=== PATIENT | male | born 1945 | race Caucasian/White ===

== ENCOUNTER 2016-12-31 17:44 | Outpatient (CLI) | payer MEDICARE, OTHER ==
[2016-12-31 13:38] LABS: HEMOGLOBIN A1C 0.94 g/dL
[2016-12-31 14:05] LABS: ALBUMIN/GLOBULIN RATIO 1.4 (1.0-2.2); BILIRUBIN,TOTAL 1.9 mg/dL (0.2-1.0); BUN - BLOOD UREA NITROGEN 18 mg/dL (6-20); CALCIUM 9.3 mg/dL (8.5-10.3); CARBON DIOXIDE - CO2 25 mmol/L (21-32); CHLORIDE 105 mmol/L (101-111); CHOL/HDL RATIO 5.3 (<5.0); CHOLESTEROL 163 mg/dL; CREATININE 1.1 mg/dL (0.6-1.2); GFR - MDRD 66 (>89); GLUCOSE 136 mg/dL (70-100); HDL CHOLESTEROL 31 mg/dL; LDL/HDL RATIO 2.9 (<3.6); POTASSIUM 4.1 mmol/L (3.5-5.0); SODIUM 138 mmol/L (135-145); TOTAL PROTEIN 6.8 g/dL (6.7-8.2); TRIGLYCERIDES 209 mg/dL; VLDL CHOLESTEROL 42 mg/dL
== END 2016-12-31 17:45 | disposition home or self-care (01) ==
LOC: LAB.WCP 17:44
PROVIDERS: ATTEND Family Medicine
DX: E11.40 Type 2 diabetes mellitus with diabetic neuropathy, unspecified (principal)
CPT/HCPCS: 36415; 80053; 80061; 82043; 83036

== ENCOUNTER 2017-07-07 07:56 | Outpatient (CLI) | payer MEDICARE, OTHER ==
[2017-07-07 12:55] LABS: BASOPHILS % (AUTO) 0.6 %; EOSINOPHILS # (AUTO) 0.2 10^3/uL (0.0-0.7); EOSINOPHILS % (AUTO) 3.6 %; LYMPHOCYTES # (AUTO) 2.8 10^3/uL (1.5-3.5); LYMPHOCYTES % (AUTO) 44.1 %; MEAN CORPUSCULAR HEMOGLOBIN 29.3 pg (27.0-31.0); MEAN CORPUSCULAR HGB CONC 32.9 g/dL (32.0-36.0); MEAN PLATELET VOLUME 8.5 fL (7.4-11.4); MONOCYTES # (AUTO) 0.5 10^3/uL (0.0-1.0); NEUTROPHILS # (AUTO) 2.8 10^3/uL (1.5-6.6); NEUTROPHILS % (AUTO) 43.7 %; PLT - PLATELET COUNT 194 10^3/uL (130-450); RED BLOOD COUNT 5.45 10^6/uL (4.70-6.10); RED CELL DISTRIBUTION WIDTH 14.7 % (12.0-15.0); WHITE BLOOD COUNT 6.4 x10^3/uL (4.8-10.8)
[2017-07-07 13:22] LABS: HEMOGLOBIN A1C 1.07 g/dL; HEMOGLOBIN A1C % 7.6 % (4.6-6.2)
[2017-07-07 13:32] LABS: ALBUMIN 4.1 g/dL (3.2-5.5); ALBUMIN/GLOBULIN RATIO 1.4 (1.0-2.2); ALKALINE PHOSPHATASE 33 IU/L (42-121); ALT ALANINE AMINOTRANSFERASE 47 IU/L (10-60); AST ASPARTATE AMINOTRANSFERASE 29 IU/L (10-42); BUN - BLOOD UREA NITROGEN 18 mg/dL (6-20); CALCIUM 9.7 mg/dL (8.5-10.3); CARBON DIOXIDE - CO2 26 mmol/L (21-32); CHLORIDE 106 mmol/L (101-111); CHOL/HDL RATIO 4.6 (<5.0); CHOLESTEROL 174 mg/dL; CREATININE 1.2 mg/dL (0.6-1.2); GFR - MDRD 60 (>89); GLUCOSE 156 mg/dL (70-100); HDL CHOLESTEROL 38 mg/dL; LDL CHOLESTEROL,CALCULATED 93 mg/dL; LDL/HDL RATIO 2.4 (<3.6); SODIUM 138 mmol/L (135-145); TOTAL PROTEIN 7.1 g/dL (6.7-8.2); VLDL CHOLESTEROL 43 mg/dL
== END 2017-07-07 07:57 | disposition home or self-care (01) ==
LOC: LAB.WCP 07:56
PROVIDERS: ATTEND Family Medicine
DX: E11.9 Type 2 diabetes mellitus without complications (principal); R53.83 Other fatigue
CPT/HCPCS: 36415; 80053; 80061; 83036; 83721; 85025

== ENCOUNTER 2017-10-07 07:12 | Outpatient (CLI) | payer MEDICARE, OTHER ==
[2017-10-07 13:02] LABS: ALBUMIN 4.1 g/dL (3.2-5.5); ALBUMIN/GLOBULIN RATIO 1.5 (1.0-2.2); BILIRUBIN,TOTAL 1.4 mg/dL (0.2-1.0); CALCIUM 9.7 mg/dL (8.5-10.3); CREATININE 1.2 mg/dL (0.6-1.2); TOTAL PROTEIN 6.9 g/dL (6.7-8.2)
[2017-10-07 13:11] LABS: HB2 TOTAL 16.8 g/dL; HEMOGLOBIN A1C 1.02 g/dL; HEMOGLOBIN A1C % 7.7 % (4.6-6.2)
== END 2017-10-07 07:13 ==
LOC: LAB.WCP 07:12
PROVIDERS: ATTEND Family Medicine
DX: E11.9 Type 2 diabetes mellitus without complications (principal)
CPT/HCPCS: 36415; 80053; 83036

== ENCOUNTER 2018-01-07 07:30 | Outpatient (CLI) | payer MEDICARE, OTHER ==
[2018-01-07 12:56] LABS: HB2 TOTAL 17.1 g/dL; HEMOGLOBIN A1C 1.04 g/dL; HEMOGLOBIN A1C % 7.7 % (4.6-6.2)
[2018-01-07 13:04] LABS: ALBUMIN 4.3 g/dL (3.2-5.5); ALBUMIN/GLOBULIN RATIO 1.6 (1.0-2.2); BILIRUBIN,TOTAL 0.9 mg/dL (0.2-1.0); CALCIUM 9.7 mg/dL (8.5-10.3); CREATININE 1.2 mg/dL (0.6-1.2)
== END 2018-01-07 07:31 | disposition home or self-care (01) ==
LOC: LAB.WCP 07:30
PROVIDERS: ATTEND Family Medicine
DX: E11.40 Type 2 diabetes mellitus with diabetic neuropathy, unspecified (principal); M65.331 Trigger finger, right middle finger; E11.9 Type 2 diabetes mellitus without complications
CPT/HCPCS: 36415; 80053; 82043; 83036

== ENCOUNTER 2018-04-10 07:30 | Outpatient (CLI) | payer MEDICARE, OTHER ==
[2018-04-10 13:09] LABS: CALCIUM 9.4 mg/dL (8.5-10.3); CREATININE 1.1 mg/dL (0.6-1.2)
[2018-04-10 14:15] LABS: HB2 TOTAL 16.1 g/dL; HEMOGLOBIN A1C 1.01 g/dL; HEMOGLOBIN A1C % 7.9 % (4.6-6.2)
== END 2018-04-10 07:31 | disposition home or self-care (01) ==
LOC: LAB.WCP 07:30
PROVIDERS: ATTEND Family Medicine
DX: E11.40 Type 2 diabetes mellitus with diabetic neuropathy, unspecified (principal); E11.9 Type 2 diabetes mellitus without complications
CPT/HCPCS: 36415; 80048; 83036

== ENCOUNTER 2018-07-13 08:00 | Outpatient (CLI) | payer MEDICARE, OTHER ==
[2018-07-13 12:58] LABS: ALBUMIN 3.9 g/dL (3.2-5.5); ALBUMIN/GLOBULIN RATIO 1.3 (1.0-2.2); CALCIUM 9.4 mg/dL (8.5-10.3)
[2018-07-13 13:22] LABS: HB2 TOTAL 16.5 g/dL; HEMOGLOBIN A1C 1.14 g/dL; HEMOGLOBIN A1C % 8.5 % (4.6-6.2)
== END 2018-07-13 23:59 | disposition home or self-care (01) ==
LOC: LAB.WCP 08:00
PROVIDERS: ATTEND Family Medicine
DX: R10.30 Lower abdominal pain, unspecified (principal); E11.40 Type 2 diabetes mellitus with diabetic neuropathy, unspecified
CPT/HCPCS: 36415; 80053; 82043; 83036

== ENCOUNTER 2018-07-24 09:38 | Outpatient (CLI) | payer MEDICARE, OTHER ==
[2018-07-24] MEDS ORDERED: IOVERSOL 320 50 ML VIAL ONE (10:03)
[2018-07-24] MEDS ORDERED: IOVERSOL 320 100 ML VIAL IVP ONE ×2 (10:03→11:08)
[2018-07-24] MEDS ORDERED: IOVERSOL 320 50 ML VIAL PO ONE (11:08)
--- NOTE | 2018-07-24 11:39 | CT Report ---
Reason: ABDOMINAL PAIN,RIGHT LOWER QUADRANT Procedure Date: 07/24/2018 Accession Number: [id number] / [id number] Procedure: CT - Abdomen/Pelvis W CPT Code: FULL RESULT: EXAM: CT ABDOMEN AND PELVIS EXAM DATE: 07/24/2018 11:07 AM. CLINICAL HISTORY: Abdominal pain, right lower quadrant. COMPARISONS: None. TECHNIQUE: Routine helical CT imaging was performed through the abdomen and pelvis. IV contrast: Opti 320 90 mL. Enteric contrast: Yes. Reconstructions: Coronal and sagittal. In accordance with CT protocol optimization, one or more of the following dose reduction techniques were utilized for this exam: automated exposure control, adjustment of mA and/or KV based on patient size, or use of iterative reconstructive technique. FINDINGS: Lung Bases: Unremarkable. Liver: Normal. No masses. Gallbladder/Bile Ducts: Cholelithiasis. Spleen: Normal. Pancreas: Normal. Adrenal Glands: Normal. Kidneys: Right renal cysts. No hydronephrosis on either side. No calculi. Peritoneal Cavity/Bowel: Nonspecific 0.8 cm peritoneal calcification in the pericecal region. No free fluid, free air or adenopathy. No masses or acute inflammatory process. The appendix is well visualized and normal. Pelvic Organs: Normal. The bladder and visualized pelvic organs are within normal limits. Vasculature: No aneurysms or other significant abnormality. Bones: No significant abnormality. Other: None. IMPRESSION: Cholelithiasis, no acute cholecystitis. RADIA
== END 2018-07-24 09:39 | disposition home or self-care (01) ==
LOC: DI 09:38
PROVIDERS: ATTEND Family Medicine
DX: K80.20 Calculus of gallbladder without cholecystitis without obstruction (principal); R10.31 Right lower quadrant pain
CPT/HCPCS: 74177; Q9967

== ENCOUNTER 2018-10-12 07:11 | Outpatient (CLI) | payer MEDICARE, OTHER ==
[2018-10-12 12:35] LABS: ALBUMIN 4.3 g/dL (3.2-5.5); ALBUMIN/GLOBULIN RATIO 1.5 (1.0-2.2); BILIRUBIN,TOTAL 2.5 mg/dL (0.2-1.0); CALCIUM 9.4 mg/dL (8.5-10.3); CREATININE 1.1 mg/dL (0.6-1.2); TOTAL PROTEIN 7.1 g/dL (6.7-8.2)
[2018-10-12 13:44] LABS: HEMOGLOBIN A1C 1.13 g/dL; HEMOGLOBIN A1C % 8.6 % (4.6-6.2)
== END 2018-10-12 07:12 | disposition home or self-care (01) ==
LOC: LAB.WCP 07:11
PROVIDERS: ATTEND Family Medicine
DX: E11.40 Type 2 diabetes mellitus with diabetic neuropathy, unspecified (principal)
CPT/HCPCS: 36415; 80053; 83036

== ENCOUNTER 2019-01-04 08:00 | Outpatient (CLI) | payer MEDICARE, OTHER ==
[2019-01-04 12:34] LABS: CREATININE 1.4 mg/dL (0.6-1.2)
[2019-01-04 16:26] LABS: HB2 TOTAL 17.6 g/dL; HEMOGLOBIN A1C 1.01 g/dL; HEMOGLOBIN A1C % 7.4 % (4.6-6.2)
== END 2019-01-04 23:59 | disposition home or self-care (01) ==
LOC: LAB.WCP 08:00
PROVIDERS: ATTEND Family Medicine
DX: E11.40 Type 2 diabetes mellitus with diabetic neuropathy, unspecified (principal)
CPT/HCPCS: 36415; 80048; 83036

== ENCOUNTER 2019-05-03 08:00 | Outpatient (CLI) | payer MEDICARE, OTHER ==
[2019-05-03 12:45] LABS: HB2 TOTAL 15.8 g/dL; HEMOGLOBIN A1C 1.01 g/dL
[2019-05-03 13:11] LABS: ALBUMIN 4.2 g/dL (3.2-5.5); ALBUMIN/GLOBULIN RATIO 1.4 (1.0-2.2); ALKALINE PHOSPHATASE 34 IU/L (42-121); ALT ALANINE AMINOTRANSFERASE 23 IU/L (10-60); AST ASPARTATE AMINOTRANSFERASE 20 IU/L (10-42); BILIRUBIN,TOTAL 2.1 mg/dL (0.2-1.0); BUN - BLOOD UREA NITROGEN 17 mg/dL (6-20); CALCIUM 9.4 mg/dL (8.5-10.3); CARBON DIOXIDE - CO2 27 mmol/L (21-32); CHLORIDE 106 mmol/L (101-111); CHOL/HDL RATIO 3.2 (<5.0); CHOLESTEROL 119 mg/dL; CREATININE 1.2 mg/dL (0.6-1.2); GFR - MDRD 59 (>89); GLUCOSE 153 mg/dL (70-100); HDL CHOLESTEROL 37 mg/dL; LDL CHOLESTEROL,CALCULATED 55 mg/dL; LDL/HDL RATIO 1.5 (<3.6); SODIUM 142 mmol/L (135-145); TOTAL PROTEIN 7.1 g/dL (6.7-8.2); VLDL CHOLESTEROL 27 mg/dL
[2019-05-03 18:49] LABS: MICROALBUM/CREATININE RATIO,UR 45.5 ug/mg (<30.0); MICROALBUMIN,URINE 9.7 mg/dL (0-300.0)
== END 2019-05-03 23:59 | disposition home or self-care (01) ==
LOC: LAB.WCP 08:00
PROVIDERS: ATTEND Family Medicine
DX: E11.40 Type 2 diabetes mellitus with diabetic neuropathy, unspecified (principal); R19.4 Change in bowel habit
CPT/HCPCS: 36415; 80053; 80061; 82043; 82570; 83036; 83721; 84443

== ENCOUNTER 2019-11-05 08:00 | Outpatient (CLI) | payer MEDICARE, OTHER ==
[2019-11-05 12:23] LABS: CALCIUM 9.3 mg/dL (8.5-10.3); CREATININE 1.1 mg/dL (0.6-1.2)
[2019-11-05 12:37] LABS: HB2 TOTAL 15.8 g/dL; HEMOGLOBIN A1C 0.74 g/dL; HEMOGLOBIN A1C % 6.4 % (4.6-6.2)
[2019-11-05 19:16] LABS: CREATININE,URINE 108.3 mg/dL; MICROALBUM/CREATININE RATIO,UR 34.2 ug/mg (<30.0); MICROALBUMIN,URINE 3.7 mg/dL (0-300.0)
== END 2019-11-05 23:59 | disposition home or self-care (01) ==
LOC: LAB.WCP 08:00
PROVIDERS: ATTEND Family Medicine
DX: I10 Essential (primary) hypertension (principal); E11.9 Type 2 diabetes mellitus without complications; E78.5 Hyperlipidemia, unspecified; N52.9 Male erectile dysfunction, unspecified
CPT/HCPCS: 36415; 80048; 81599; 82043; 82570; 83036; 84402; 84403

== ENCOUNTER 2020-03-07 10:54 | Outpatient (CLI) | payer MEDICARE, OTHER ==
[2020-03-07 19:21] LABS: CREATININE,URINE 205.5 mg/dL; MICROALBUM/CREATININE RATIO,UR 35.5 ug/mg (<30.0); MICROALBUMIN,URINE 7.3 mg/dL (0-300.0)
[2020-03-07 19:35] LABS: CALCIUM 9.6 mg/dL (8.5-10.3); CREATININE 1.1 mg/dL (0.6-1.2)
[2020-03-07 20:33] LABS: HEMOGLOBIN A1c% 6.7 % (4.27-6.07)
== END 2020-03-07 23:59 | disposition home or self-care (01) ==
LOC: LAB.WCP 10:54
PROVIDERS: ATTEND Family Medicine
DX: I10 Essential (primary) hypertension (principal); E78.5 Hyperlipidemia, unspecified; E11.9 Type 2 diabetes mellitus without complications
CPT/HCPCS: 36415; 80048; 82043; 82570; 83036

== ENCOUNTER 2020-06-02 07:10 | Outpatient (CLI) | payer MEDICARE, OTHER ==
[2020-06-02 12:52] LABS: ESTIMATED AVERAGE GLUCOSE 151 mg/dL (70-100); HEMOGLOBIN A1c% 6.9 % (4.27-6.07)
[2020-06-02 13:03] LABS: ALBUMIN 4.3 g/dL (3.2-5.5); ALBUMIN/GLOBULIN RATIO 1.5 (1.0-2.2); BILIRUBIN,TOTAL 1.5 mg/dL (0.2-1.0); CALCIUM 9.7 mg/dL (8.5-10.3); CREATININE 1.2 mg/dL (0.6-1.2); POTASSIUM 4.1 mmol/L (3.5-5.0); TOTAL PROTEIN 7.1 g/dL (6.7-8.2)
--- OUTSIDE RECORDS SUMMARY | 2020-06-07 01:54 | EXTERNAL MEDICAL SUMMARY RPT | Continuity of Care Document ---
:1945 Demographics Phone Unavailable Preferred Language Singaporean Marital Status Unknown Taoist Affiliation Unknown Race Unknown Ethnic Group Unknown Author Organization [place] Address [address] [place] [address] Phone Care Team Providers Name Role Phone Tabatha Unavailable Unavailable Unavailable Unavailable Solange Unavailable Unavailable Problems date description facility 2020-03-07 10:54 TYPE 2 DIABETES MELLITUS Located within [facility] WITHOUT COMPLICATIONS 2020-03-07 10:54 HYPERLIPIDEMIA, UNSPECIFIED [facility] 2020-03-07 10:54 ESSENTIAL (PRIMARY) [facility] HYPERTENSION 2020-03-10 00:00:[address] [facility] [place] [facility] 2020-03-10 00:00:00 Health-related behavior [facility] [place] [facility] 2020-03-10 00:00:00 Tobacco use and exposure [facility] [place] [facility] 2020-03-10 00:00:[address] [facility] [place] [facility] 2020-03-10 00:00:[address] [facility] [place] [facility] 2020-03-10 00:00:[address] [facility] [place] [facility] 2020-03-10 00:00:00 Tobacco smoking status NHIS [facility] [place] [facility] 2020-05-26 00:00:00 COMPREHENSIVE METABOLIC PANEL [facility] [place] [facility] 2020-05-26 00:00:[address] [facility] [place] [facility] 2020-06-02 00:00 TYPE 2 DIABETES MELLITUS Located within [facility] WITHOUT COMPLICATIONS 2020-06-02 07:10 TYPE 2 DIABETES MELLITUS Located within [facility] WITHOUT COMPLICATIONS Allergies date description facility No Known Drug Allergies Located within [facility] NO KNOWN ALLERGIES [facility] Medications date description facility 2020-03-10 00:00:[address] [facility] [place] [facility] 2020-03-10 00:00:[address] [facility] [place] [facility] Procedures date description facility 2020-03-10 00:00:00 First Vx - Ix admin for [facility] Medicare patients [place] [facility] date description facility 2020-03-10 00:00:00 Pneumovax 23 Injection [facility] Injectable 25 MCG/0.5ML [place] [facility] date description facility 2020-03-10 00:00:00 [facility] [place] [facility] Results Social History date description facility 2020-03-10 00:00:[address] [facility] [place] [facility] Social History date description facility 2020-03-10 00:00:[address] [facility] [place] [facility] date description facility [id number]
== END 2020-06-02 23:59 | disposition home or self-care (01) ==
LOC: LAB.WCP 07:10
PROVIDERS: ATTEND Family Medicine
DX: E11.9 Type 2 diabetes mellitus without complications (principal)
CPT/HCPCS: 36415; 80053; 83036

== ENCOUNTER 2020-06-08 13:47 | Outpatient (CLI) | payer MEDICARE, OTHER ==
--- NOTE | 2020-06-08 16:09 | XRAY Report ---
PROCEDURE: Lumbar Spine 2 View INDICATIONS: LOW BACK PAIN, CHRONIC TECHNIQUE: 3 views of the lumbar spine were acquired. COMPARISON: Lumbar spine x-ray 07/13/2016 FINDINGS: Bones: 5 aww-pyj-aspumkz vertebrae are present. There is overall straightening of normal lumbar cur vature. There is trace retrolisthesis of L3 on L4, L4-L5 and L5 on S1. Severe foraminal narrowing is noted at L2-3, L4-5 and L5-S1. Severe disc space narrowing is present at L5-S1, moderate to severe L2 -3 mild to moderate throughout the remainder of the lumbar spine. Multilevel partially bridging anter ior osteophytes are present within the visualized thoracolumbar spine. Overall degenerative changes d emonstrating interval progression at multiple levels. No visualized acute fracture.. No suspicious bony lesions. Soft tissues: Overlying bowel gas pattern is normal. No suspicious soft tissue calcifications. IMPRESSION: 1. Multilevel degenerative changes most severe at L5-S1 overall showing interval progression compared to 2017. Reviewed by: Caity Pichardo MD on 06/08/2020 4:08 PM PST Approved by: Caity Pichardo MD on 06/08/2020 4:08 PM PST Station ID: [id number]
--- NOTE | 2020-06-08 16:09 | XRAY Report ---
PROCEDURE: Hip w/Pelvis 1V RT INDICATIONS: HIP PAIN, RIGHT TECHNIQUE: AP pelvis with lateral view(s) of the right hip(s). COMPARISON: CT abdomen pelvis 07/24/2018 FINDINGS: Bones: No fractures or dislocations. Pelvic ring appears intact. No suspicious bony lesions. Mode rate bilateral degenerative hip joint space narrowing. Particular osteophytes are present. No visuali zed erosions. Degenerative changes are present within the lower lumbar spine. Soft tissues: The visualized bowel gas pattern is normal. No suspicious soft tissue calcifications. 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 Reviewed by: Caity Pichardo MD on 06/08/2020 4:08 PM PST Approved by: Caity Pichardo MD on 06/08/2020 4:08 PM PST Station ID: [id number]
== END 2020-06-08 13:48 | disposition home or self-care (01) ==
LOC: DI.N 13:47
PROVIDERS: ATTEND Physician Assistant Medical
DX: M43.16 Spondylolisthesis, lumbar region (principal); M43.17 Spondylolisthesis, lumbosacral region; M47.816 Spondylosis without myelopathy or radiculopathy, lumbar region; M47.817 Spondylosis without myelopathy or radiculopathy, lumbosacral region; M51.36 Other intervertebral disc degeneration, lumbar region; M51.37 Other intervertebral disc degeneration, lumbosacral region; M16.0 Bilateral primary osteoarthritis of hip

== ENCOUNTER 2020-10-18 09:17 | Emergency (ER) | payer MEDICARE, OTHER ==
[2020-10-18] MEDS ORDERED: ONDANSETRON 4 MG/2 ML VIAL IVP STA (09:35)
[2020-10-18] MEDS ORDERED: HYDROmorphone 1 MG/ML CARPUJECT IVP STA (09:35)
--- NOTE | 2020-10-18 09:38 | ED Physician Documentation ---
PD HPI ABD PAIN - Stated complaint Stated Complaint: RIGHT LEG,HIP,BACK,GROIN PX - Chief complaint Chief Complaint: Abd Pain - History obtained from History obtained from: Patient - Additional information Additional information: 75-year-old male with diabetes has had severe right flank, right lower quadrant, right testicular pain for the last 5 days. It is worse with any movement. He has been nauseous today. There was no trauma. Never had this before. No associated hematuria or urinary complaints. Review of Systems Ten Systems: 10 systems reviewed and negative Constitutional: denies: Fever, Chills Cardiac: reports: Reviewed and negative Respiratory: reports: Reviewed and negative PD PAST MEDICAL HISTORY - Past Medical History Endocrine/Autoimmune: Type 2 diabetes - Present Medications Home Medications: Ambulatory Orders Medication Instructions Recorded Confirmed Aspirin 81 mg PO DAILY 12/20/15 06/06/16 Benazepril/Hydrochlorothiazide 1 each PO DAILY 12/20/15 06/06/16 [Benazepril-Hctz 20-25 mg Tab] Metformin HCl 1,000 mg PO BID 12/20/15 06/06/16 Multivitamin [Multivitamins] 1 each PO DAILY 12/20/15 06/06/16 Cholecalciferol (Vitamin D3) 2,000 unit PO DAILY 06/06/16 06/06/16 [Vitamin D] Gabapentin [Neurontin] 300 mg PO TID #30 cap 10/18/20 HYDROcod/ACETAM 5/325 [[place] 5/325] 1 - 2 tab PO Q6H PRN #15 tablet 10/18/20 - Allergies Allergies/Adverse Reactions: Allergies Allergy/AdvReac Type Severity Reaction Status Date / Time No Known Drug Allergies Allergy Verified 10/18/20 09:27 - Social History Smoking Status: Never smoker PD ED PE NORMAL - Vitals Vital signs reviewed: Yes - General General: Alert and oriented X 3, Other (uncomfortable) - HEENT HEENT: PERRL, EOMI - Neck Neck: Supple, no meningeal sign, No bony TTP - Cardiac Cardiac: RRR, No murmur - Respiratory Respiratory: No respiratory distress, Clear bilaterally - Abdomen Abdomen: Normal bowel sounds, Soft, Non tender, Other (ventral hernia) - Male Male : Other (normal, circumcised, NTTP) - Back Back: No CVA TTP, No spinal TTP - Derm Derm: Normal color, Warm and dry - Extremities Extremities: No deformity, No tenderness to palpate, Normal ROM s pain, No edema, No calf tenderness / cord - Neuro Neuro: Alert and oriented X 3, Normal speech Results - Vitals Vitals: Vital Signs - 24 hr 10/18/20 09:22 Temperature 36.9 C Heart Rate 95 Respiratory 18 Rate Blood Pressure 148/88 H O2 Saturation 100 Oxygen O2 Source Room air - Labs Labs: Laboratory Tests 10/18/20 10/18/20 10/18/20 09:51 09:51 09:56 WBC 4.8 RBC 5.89 Hgb 17.3 Hct 53.5 H MCV 90.8 MCH 29.4 MCHC 32.3 RDW 13.6 Plt Count 171 MPV 11.0 Neut # (Auto) 2.9 Lymph # (Auto) 1.4 L Talbot # (Auto) 0.3 Eos # (Auto) 0.1 Baso # (Auto) 0.0 Absolute Nucleated RBC 0.00 Nucleated RBC % 0.0 Sodium 138 Potassium 4.1 Chloride 101 Carbon Dioxide 26 Anion Gap 11.0 BUN 19 Creatinine 1.2 Estimated GFR (MDRD) 59 L Glucose 185 H Lactic Acid 1.9 Calcium 9.7 Total Bilirubin 1.5 H AST 20 ALT 31 Alkaline Phosphatase 45 Total Protein 7.8 Albumin 4.6 Globulin 3.2 Albumin/Globulin Ratio 1.4 Lipase 49 PD MEDICAL DECISION MAKING - ED course ED course: 75-year-old gentleman presents with 5 days of back flank and leg pain. Examination is benign. He appears uncomfortable. Later states this is an exacerbation of a more chronic issue which he was previously in physical therapy for. Pain was much better after a dose of Dilaudid. Vascular issues were considered, but angiography of the abdomen pelvis was done and negative with the exception of some atherosclerosis, nonobstructing bilateral nephrolithiasis and cholelithiasis. He also has multilevel DDD throughout the lumbar spine on that same study. I am prescribing a short course of short-acting opioid pain medication for this patient. I have reviewed the patients [employer] and no concerning findings were noted. I have discussed that the opioids are for short term therapy only, and will not be refilled from the ED. Departure - Departure Disposition: 01 Home, Self Care Clinical Impression: Abdominal pain Qualifiers: Abdominal location: right lower quadrant Qualified Code(s): R10.31 - Right lower quadrant pain Back pain Qualifiers: Back pain location: low back pain Chronicity: acute Back pain laterality: right Sciatica presence: with sciatica Sciatica laterality: sciatica of right side Qualified Code(s): M54.41 - Lumbago with sciatica, right side Condition: Good Record reviewed to determine appropriate education?: Yes Instructions: ED Sciatica Prescriptions: Gabapentin [Neurontin] 300 mg PO TID #30 cap HYDROcod/ACETAM 5/325 [[place] 5/325] 1 - 2 tab PO Q6H PRN #15 tablet PRN Reason: Pain Comments: Follow-up with your primary care physician, discuss restarting physical therapy. Return for any new or worsening symptoms, especially a change in the pain, fever, or pain is not controlled by the pain medication. I am prescribing a short course of narcotic pain medication for you. These are potentially dangerous and addictive medications that should be used carefully. These medications may constipate you. Take an aikp-mmf-grzkvdu stool softener (docusate) twice daily with plenty of water while taking these medications. If you go 24 hours without a bowel movement, take qjvu-bgc-nqcwgni miralax, per package instructions. Do not drink or drive while taking these medications. If you received narcotic or sedating medications while in the emergency department, do not drive for 24 hours. Store this medication in a safe, secure place and out of reach of children. It is a violation of federal law to give or sell this medication to another person or to use in a manner other than prescribed. The ED will not refill narcotic prescriptions, including prescriptions lost or stolen. To dispose of unwanted medications: 1. [facility] at [address] in [place] has a medication drop box. They accept prescription medications (in pill form) Friday through Friday 9:00 a.m. to 5:00 p.m. 2. The [facility] [employer] accepts prescription medications (in pill form only) for disposal year round. Call for more information. 3. Contact the [facility] for the next [facility] sponsored prescription drug collection event. , [phone], or [phone]; Note that many narcotic pain relievers also contain Tylenol/acetaminophen. Please ensure that your total dose of acetaminophen from all sources does not exceed 3 g (3000 mg) per day.
--- OUTSIDE RECORDS SUMMARY | 2020-10-18 09:54 | EXTERNAL MEDICAL SUMMARY RPT | Continuity of Care Document ---
:1945 Demographics Phone Unavailable Preferred Language Unknown Marital Status Unknown Yarsanism Affiliation Unknown Race Unknown Ethnic Group Unknown Author Organization [place] Address [address] [place] [address] Phone Allergies Encounters Medications Problems Results
[2020-10-18 10:00] LABS: BASOPHILS % (AUTO) 0.8 %; EOSINOPHILS # (AUTO) 0.1 10^3/uL (0.0-0.7); EOSINOPHILS % (AUTO) 1.9 %; HCT - HEMATOCRIT 53.5 % (42.0-52.0); HGB - HEMOGLOBIN 17.3 g/dL (14.0-18.0); LYMPHOCYTES # (AUTO) 1.4 10^3/uL (1.5-3.5); LYMPHOCYTES % (AUTO) 28.6 %; MEAN CORPUSCULAR HEMOGLOBIN 29.4 pg (27.0-31.0); MEAN CORPUSCULAR HGB CONC 32.3 g/dL (32.0-36.0); MEAN CORPUSCULAR VOLUME 90.8 fL (80.0-94.0); MONOCYTES # (AUTO) 0.3 10^3/uL (0.0-1.0); MONOCYTES % (AUTO) 6.3 %; NEUTROPHILS # (AUTO) 2.9 10^3/uL (1.5-6.6); PLT - PLATELET COUNT 171 10^3/uL (130-450); RED BLOOD COUNT 5.89 10^6/uL (4.70-6.10); RED CELL DISTRIBUTION WIDTH 13.6 % (12.0-15.0); WHITE BLOOD COUNT 4.8 x10^3/uL (4.8-10.8)
[2020-10-18] MEDS ORDERED: IOVERSOL 320 100 ML VIAL IVP ONE ×2 (10:13→10:42)
[2020-10-18 10:14] LABS: ALBUMIN 4.6 g/dL (3.2-5.5); ALBUMIN/GLOBULIN RATIO 1.4 (1.0-2.2); BILIRUBIN,TOTAL 1.5 mg/dL (0.2-1.0); CALCIUM 9.7 mg/dL (8.5-10.3); CREATININE 1.2 mg/dL (0.6-1.2); POTASSIUM 4.1 mmol/L (3.5-5.0); TOTAL PROTEIN 7.8 g/dL (6.7-8.2)
--- NOTE | 2020-10-18 11:05 | CT Report ---
PROCEDURE: ANGIO ABDOMEN/PELVIS W INDICATIONS: abd/back pain CONTRAST: IV CONTRAST: Optiray 320 ml: 100 PO CONTRAST: *NO PO CONTRAST TECHNIQUE: After the administration of intravenous contrast, 3 mm sections acquired from the diaphragm to the il iac crests. 3-dimensional maximum intensity projection (MIP) coronal and sagittal reformats, and/or 3-dimensional volume rendering reformatting was then performed. For radiation dose reduction, the fo llowing was used: automated exposure control, adjustment of mA and/or kV according to patient size. COMPARISON: CT abdomen pelvis 07/24/2018 FINDINGS: Image quality: Excellent. Extravascular tissues: There is mild dependent atelectasis in the lung bases. A small 0.3 cm nodule i n the right lower lobe peripherally on series 5 image 18 appears unchanged. There is a right lower lo be nodule along the right hemidiaphragm measuring up to 0.9 cm on series 5 image 24 which appears sli ghtly increased from 0.6 cm on the prior study. This is also seen on coronal series 7 image 81. A med ial right lower lobe subpleural nodule on series 5 image 29 measuring 2.4 cm appears unchanged. Heart size is normal. Evaluation of the liver demonstrates no focal hepatic lesions. Multiple calcified d ependent gallstones are present in the gallbladder without wall thickening or pericholecystic fluid. Biliary system is non dilated. The spleen is normal in size. Pancreas enhances normally without sergio pancreatic fat stranding or fluid collections. There is nodular thickening of the right adrenal gland measuring up to 1.0 cm which appears unchanged from the prior study. Kidneys demonstrate no hydronep hrosis. 2 prominent right renal cysts are present. There are 2 clustered nonobstructing stones within the right kidney with the largest stone measuring up to 0.5 cm. There is a punctate nonobstructive l eft renal stone measuring approximately 0.2 cm. The bladder demonstrates normal wall thickness. No ca lcified bladder stones. There is prominent enlargement of the prostate. Non-opacified bowel loops dem onstrate normal wall thickness and caliber. No free fluid or air. No retroperitoneal or mesenteric adenopathy. No ventral hernias. No suspicious bony abnormalities. No vertebral body compression fr actures. There is multilevel degenerative disc disease throughout the lumbar spine including moderate degeneration at L5-S1 with endplate sclerosis and osteophytosis. Mild facet arthropathy also present within the lower lumbar spine. Abdominal aorta: The visualized aorta is normal in caliber and wall thickness. There is mild scatter ed atherosclerotic plaque. No intimal flaps to suggest dissection. The common, external, and internal iliac arteries also appear patent and normal in caliber. There is calcified plaque in the internal i liac arteries bilaterally with minimal narrowing. The external iliac arteries appear widely patent. T he common femoral and visualized proximal superficial femoral arteries also appear patent. Mesenteric arteries: The celiac, superior mesenteric, and inferior mesenteric arteries appear widely patent at their origins. Opacified peripheral branches also appear patent. Renal arteries: There are single renal arteries bilaterally which appear widely patent. IMPRESSION: 1. No evidence of aortic dissection or aneurysm. Mild scattered atherosclerotic plaque is present wit hout a high-grade stenosis of the aorta or its branch vessels. 2. Bilateral nephrolithiasis without evidence of obstructive uropathy. 3. Cholelithiasis without CT evidence of acute cholecystitis. Reviewed by: Bebeto Irving MD on 10/18/2020 11:04 AM PDT Approved by: Bebeto Irving MD on 10/18/2020 11:04 AM PDT Station ID: [id number]
[2020-10-18 11:41] VITALS: BP 149/82
== END 2020-10-18 11:41 | disposition home or self-care (01) ==
LOC: ED 09:17
DX: R10.31 Right lower quadrant pain (principal); M51.16 Intervertebral disc disorders with radiculopathy, lumbar region; K43.9 Ventral hernia without obstruction or gangrene; K80.20 Calculus of gallbladder without cholecystitis without obstruction; N20.0 Calculus of kidney; E11.9 Type 2 diabetes mellitus without complications; Z79.84 Long term (current) use of oral hypoglycemic drugs; Z79.82 Long term (current) use of aspirin
CPT/HCPCS: 36415; 74174; 80053; 83605; 83690; 85025; 96374; 99284; J1170; Q9967

== ENCOUNTER 2020-11-20 08:10 | Outpatient (CLI) | payer MEDICARE, OTHER ==
--- NOTE | 2020-11-20 09:46 | MRI Report ---
PROCEDURE: Lumbar Spine W/O INDICATIONS: right sciatica TECHNIQUE: Noncontrast sagittal T1 spin echo and T2 fast echo, sagittal STIR, axial T1 and T2 fast spin echo thr ough the lumbar spine. In cases with scoliosis, additional coronal T2 fast spin echo may be performe d. COMPARISON: None. FINDINGS: Image quality: Excellent. Alignment and Curvature: There is normal bony alignment. Bone Marrow: Marrow is of normal overall signal. No acute vertebral body compression fractures. Spinal Cord: Conus medullaris terminates at the L1 level. Visualized cord demonstrates normal signa l and size. Paraspinous Soft Tissues: No paravertebral masses. T11-T12: No canal stenosis or foraminal stenosis. T12-L1: No canal stenosis or foraminal stenosis. L1-L2: Mild disc bulge. Mild facet hypertrophy. No canal stenosis or foraminal stenosis. L2-L3: Disc bulge. Facet and ligamentous hypertrophy. Epidural lipomatosis. Severe canal stenosis. Moderate left foraminal stenosis with mild flattening deformity on the exiting left L2 nerve root. L3-L4: Minimal disc bulge. Facet hypertrophy. Mild canal stenosis. No significant foraminal stenosi s. L4-L5: There is disc bulge and marked facet and ligamentous hypertrophy. There is high-grade canal stenosis. There is severe right foraminal stenosis with right L4 nerve root impingement. There is mil d to moderate left foraminal stenosis with mild flattening deformity on the exiting left L4 nerve susan t. L5-S1: There is disc bulge. There is facet ligamentum hypertrophy. There is severe canal stenosis. There is mild to moderate right foraminal narrowing and moderate to severe left foraminal narrowing w ith left L5 nerve root impingement. IMPRESSION: 1. Diffuse degenerative change. 2. Significant multilevel canal stenosis. Canal stenosis is severe at L2-L3, mild at L3-L4, high-grad e at L4-L5, and severe at L5-S1. 3. Multilevel foraminal stenosis as described above. Findings include severe right foraminal stenosis at L4-L5 and moderate to severe left foraminal stenosis at L5-S1. Reviewed by: Chapincito Rouse MD on 11/20/2020 8:44 AM AGUILAR Approved by: Chapincito Rouse MD on 11/20/2020 8:44 AM AGUILAR Station ID: [id number]
== END 2020-11-20 08:11 | disposition home or self-care (01) ==
LOC: DI 08:10
PROVIDERS: ATTEND Physician Assistant Medical
DX: M51.16 Intervertebral disc disorders with radiculopathy, lumbar region (principal); M48.07 Spinal stenosis, lumbosacral region

== ENCOUNTER 2020-12-19 08:00 | Outpatient (CLI) | payer MEDICARE, OTHER ==
[2020-12-19 11:57] LABS: ESTIMATED AVERAGE GLUCOSE 180 mg/dL (70-100); HEMOGLOBIN A1c% 7.9 % (4.27-6.07)
[2020-12-19 12:04] LABS: ALBUMIN 4.1 g/dL (3.2-5.5); ALBUMIN/GLOBULIN RATIO 1.4 (1.0-2.2); ALKALINE PHOSPHATASE 39 IU/L (42-121); ALT ALANINE AMINOTRANSFERASE 29 IU/L (10-60); AST ASPARTATE AMINOTRANSFERASE 19 IU/L (10-42); BILIRUBIN,TOTAL 1.7 mg/dL (0.2-1.0); BUN - BLOOD UREA NITROGEN 21 mg/dL (6-20); CHOL/HDL RATIO 5.4 (<5.0); CHOLESTEROL 206 mg/dL; CREATININE 1.2 mg/dL (0.6-1.2); GFR - MDRD 59 (>89); HDL CHOLESTEROL 38 mg/dL; LDL CHOLESTEROL,CALCULATED 125 mg/dL; LDL/HDL RATIO 3.3 (<3.6); TRIGLYCERIDES 213 mg/dL; VLDL CHOLESTEROL 43 mg/dL
[2020-12-19 12:12] LABS: CALCIUM 10.1 mg/dL (8.5-10.3); CARBON DIOXIDE - CO2 26 mmol/L (21-32); CHLORIDE 105 mmol/L (101-111); GLUCOSE 164 mg/dL (70-100); POTASSIUM 4.2 mmol/L (3.5-5.0); SODIUM 141 mmol/L (135-145)
[2020-12-20 12:13] LABS: HEPATITIS C ANTIBODY NON-REACTIVE (NON-REACTIVE)
== END 2020-12-19 08:42 ==
LOC: LAB.WCP 08:00
PROVIDERS: ATTEND Physician Assistant Medical
DX: Z01.84 Encounter for antibody response examination (principal); E11.9 Type 2 diabetes mellitus without complications; E78.5 Hyperlipidemia, unspecified
CPT/HCPCS: 36415; 80053; 80061; 83036; 83721; 86803

== ENCOUNTER 2021-03-20 08:00 | Outpatient (CLI) | payer MEDICARE, OTHER ==
[2021-03-20 11:39] LABS: CALCIUM 9.8 mg/dL (8.5-10.3); CREATININE 1.2 mg/dL (0.6-1.2); POTASSIUM 3.9 mmol/L (3.5-5.0)
[2021-03-20 12:03] LABS: CREATININE,URINE 263.3 mg/dL; MICROALBUM/CREATININE RATIO,UR 14.1 ug/mg (<30.0); MICROALBUMIN,URINE 3.7 mg/dL (0-300.0)
[2021-03-20 12:12] LABS: ESTIMATED AVERAGE GLUCOSE 169 mg/dL (70-100); HEMOGLOBIN A1c% 7.5 % (4.27-6.07)
== END 2021-03-20 23:59 | disposition home or self-care (01) ==
LOC: LAB.WCP 08:00
PROVIDERS: ATTEND Internal Medicine
DX: E11.9 Type 2 diabetes mellitus without complications (principal)
CPT/HCPCS: 36415; 80048; 82043; 82570; 83036

== ENCOUNTER 2021-05-16 07:28 | Day surgery (SDC) | payer MEDICARE, OTHER ==
[2021-05-16] MEDS ORDERED: LACTATED RINGERS 1,000 ML IV ONE (07:54)
--- NOTE | 2021-05-16 08:33 | ANESTHESIA ---
Pre-Anesthesia VS, & Labs - Diagnosis history of colon polyps - Procedure colonoscopy Vital Signs: Temp Pulse Resp BP Pulse Ox 36.4 C L 104 H 18 134/86 H 96 05/16/21 07:50 05/16/21 07:50 05/16/21 07:50 05/16/21 07:50 05/16/21 07:50 Height: 5 ft 8 in Weight (kg): 94.5 kg Body Mass Index: 31.6 BMI Classification: Obese - NPO >8 hours - Lab Results Current Lab Results: Laboratory Tests 05/16/21 07:49: POC Whole Bld Glucose 121 H Home Medications and Allergies Home Medications: Ambulatory Orders Losartan [Cozaar] 100 mg ORAL DAILY 05/16/21 Metformin HCl 1,000 mg PO DAILY 12/20/15 Multivitamin [Multivitamins] 1 each PO DAILY 12/20/15 Cholecalciferol (Vitamin D3) [Vitamin D] 2,000 unit PO DAILY 06/06/16 Losartan [Cozaar] 100 mg ORAL DAILY 05/16/21 Allergies/Adverse Reactions: Allergies Allergy/AdvReac Type Severity Reaction Status Date / Time No Known Drug Allergies Allergy Verified 10/18/20 09:27 Anes History & Medical History - Anesthetic History Anesthesia Complications: reports: No previous complications - Medical History Cardiovascular: reports: Hypertension Pulmonary: reports: None Gastrointestinal: reports: None Urinary: reports: None Neuro: reports: None Musculoskeletal: reports: None Endocrine/Autoimmune: reports: Type 2 diabetes Blood Disorders: reports: None Skin: reports: None Smoking Status: Never smoker Psychosocial: reports: No issues indicated History of Cancer?: No - Surgical History General: reports: Colonoscopy Eyes Ears Nose Throat (EENT): reports: Tonsil/Adenoidectomy Exam General: Alert, Oriented x3, Cooperative, No acute distress Dental: WNL Mouth Openin Fingerbreadth Neck Mobility: Normal Mallampati classification: III Thyromental Distance: less than 4 cm Mental/Cognitive Status: Alert/Oriented X3, Normal for patient Plan Anesthesia Type: General, Total IV Consent for Procedure(s) Verified and Reviewed: Yes Code Status: Attempt Resuscitation ASA classification: 2-Mild systemic disease Is this case an emergency?: No
[2021-05-16] MEDS ORDERED: PROPOFOL 500 MG/50 ML 500 MG/50 ML VIAL ONE (08:57)
--- NOTE | 2021-05-16 09:07 | HISTORY & PHYSICAL EXAMINATION ---
Chief Complaint - Chief Complaint Chief Complaint: history of colon polyps History of Present Illness - History Obtained From Records Reviewed: yes History obtained from: pt Exam Limitations: none - History of Present Illness HPI Comment/Other: history of colon polyps. here for surveillance colonoscopy History - Past Medical History Cardiovascular: reports: Hypertension Respiratory: reports: None Neuro: reports: None Endocrine/Autoimmune: reports: Type 2 diabetes GI: reports: None : reports: None HEENT: reports: None Psych: reports: None Musculoskeletal: reports: None Derm: reports: None MRSA Hx?: No - Past Surgical History General: reports: Colonoscopy HEENT: reports: Tonsil/Adenoidectomy - POLST Patient has POLST: No Meds/Allgy - Home Medications Home Medications: Ambulatory Orders Medication Instructions Recorded Confirmed Metformin HCl 1,000 mg PO DAILY 12/20/15 05/16/21 Multivitamin [Multivitamins] 1 each PO DAILY 12/20/15 05/16/21 Cholecalciferol (Vitamin D3) 2,000 unit PO DAILY 06/06/16 06/06/16 [Vitamin D] Losartan [Cozaar] 100 mg ORAL DAILY 05/16/21 05/16/21 - Allergies Allergies/Adverse Reactions: Allergies Allergy/AdvReac Type Severity Reaction Status Date / Time No Known Drug Allergies Allergy Verified 10/18/20 09:27 Review of Systems - Other Findings Other Findings: 10 pt ros as above otherwise unremarkable Exam - Vital Signs Reviewed Vital Signs: Yes Vital Signs: Vital Signs x48h Temp Pulse Resp BP Pulse Ox 05/16/21 07:50 36.4 C L 104 H 18 134/86 H 96 - Physical Exam General Appearance: positive: No acute distress, Alert Eyes Bilateral: positive: PERRL, EOMI ENT: positive: No signs of dehydration Neck: positive: No JVD Respiratory: positive: No respiratory distress, Breath sounds nml Cardiovascular: positive: Regular rate & rhythm Abdomen: positive: Non-tender, No distention Neurologic/Psychiatric: positive: Oriented x3 Conclusion/Plan - Problem List (1) History of adenomatous polyp of colon Conclusion/Plan: plan colonoscopy. parq held and consent obtained
[2021-05-16] MEDS ORDERED: LACTATED RINGERS 500 ML IV ONE (09:55)
[2021-05-16 10:20] VITALS: BP 137/78
--- NOTE | 2021-05-16 14:28 | ANESTHESIA POST OP EVALUATION ---
Anesthesia Post Eval - Post Anesthesia Eval Vitals: Last Vital Signs Temp 36.3 C L 05/16/21 10:17 Pulse 96 05/16/21 10:17 Resp 16 05/16/21 10:17 BP 137/78 H 05/16/21 10:17 Pulse Ox 97 05/16/21 10:17 CV Function Including HR & BP: Stable Pain Control: Satisfactory Nausea & Vomiting: Negative Mental Status: Baseline Respiratory Status: Airway Patent Hydration Status: Satisfactory Anesthesia Complications: None
== END 2021-05-16 07:29 | disposition home or self-care (01) ==
LOC: SDS 07:28
PROVIDERS: ATTEND Surgery
PROC: 0DBM8ZX Excision of Descending Colon, Via Natural or Artificial Opening Endoscopic, Diagnostic (ICD-10-PCS; principal; 2021-05-16 09:15)
DX: Z12.11 Encounter for screening for malignant neoplasm of colon (principal); K63.5 Polyp of colon; I10 Essential (primary) hypertension; E11.9 Type 2 diabetes mellitus without complications; E66.9 Obesity, unspecified; Z68.31 Body mass index [BMI] 31.0-31.9, adult; Z79.84 Long term (current) use of oral hypoglycemic drugs; Z79.899 Other long term (current) drug therapy; Z86.010 Personal history of colon polyps
CPT/HCPCS: 45380; J7120

== ENCOUNTER 2021-11-19 07:39 | Outpatient (CLI) | payer MEDICARE, OTHER ==
[2021-11-19 12:02] LABS: CALCIUM 9.9 mg/dL (8.5-10.3); CREATININE 1.1 mg/dL (0.6-1.2); POTASSIUM 4.2 mmol/L (3.5-5.0)
[2021-11-19 12:23] LABS: THYROID STIMULATING HORMONE 2.19 uIU/mL (0.34-5.60)
[2021-11-19 12:37] LABS: ESTIMATED AVERAGE GLUCOSE 180 mg/dL (70-100); HEMOGLOBIN A1c% 7.9 % (4.27-6.07)
== END 2021-11-19 07:40 | disposition home or self-care (01) ==
LOC: LAB.N 07:39
PROVIDERS: ATTEND Internal Medicine
DX: E11.42 Type 2 diabetes mellitus with diabetic polyneuropathy (principal); E78.5 Hyperlipidemia, unspecified
CPT/HCPCS: 36415; 80048; 83036; 84443

== ENCOUNTER 2022-04-17 07:19 | Outpatient (CLI) | payer MEDICARE, OTHER ==
[2022-04-17 12:19] LABS: BASOPHILS % (AUTO) 0.7 %; EOSINOPHILS # (AUTO) 0.2 10^3/uL (0.0-0.7); EOSINOPHILS % (AUTO) 2.7 %; HCT - HEMATOCRIT 50.9 % (42.0-52.0); HGB - HEMOGLOBIN 16.2 g/dL (14.0-18.0); LYMPHOCYTES # (AUTO) 2.3 10^3/uL (1.5-3.5); LYMPHOCYTES % (AUTO) 39.6 %; MEAN CORPUSCULAR HEMOGLOBIN 29.8 pg (27.0-31.0); MEAN CORPUSCULAR HGB CONC 31.8 g/dL (32.0-36.0); MEAN CORPUSCULAR VOLUME 93.6 fL (80.0-94.0); MEAN PLATELET VOLUME 10.9 fL (7.4-11.4); MONOCYTES # (AUTO) 0.6 10^3/uL (0.0-1.0); MONOCYTES % (AUTO) 9.5 %; NEUTROPHILS # (AUTO) 2.8 10^3/uL (1.5-6.6); NEUTROPHILS % (AUTO) 47.2 %; PLT - PLATELET COUNT 196 10^3/uL (130-450); RED BLOOD COUNT 5.44 10^6/uL (4.70-6.10); RED CELL DISTRIBUTION WIDTH 13.7 % (12.0-15.0); WHITE BLOOD COUNT 5.9 x10^3/uL (4.8-10.8)
[2022-04-17 12:29] LABS: ESTIMATED AVERAGE GLUCOSE 200 mg/dL (70-100); HEMOGLOBIN A1c% 8.6 % (4.27-6.07)
[2022-04-17 13:40] LABS: ALBUMIN 4.1 g/dL (3.2-5.5); ALBUMIN/GLOBULIN RATIO 1.2 (1.0-2.2); ALKALINE PHOSPHATASE 50 IU/L (42-121); ALT ALANINE AMINOTRANSFERASE 32 IU/L (10-60); AST ASPARTATE AMINOTRANSFERASE 24 IU/L (10-42); BILIRUBIN,TOTAL 1.3 mg/dL (0.2-1.0); BUN - BLOOD UREA NITROGEN 32 mg/dL (6-20); CALCIUM 10.3 mg/dL (8.5-10.3); CARBON DIOXIDE - CO2 28 mmol/L (21-32); CHLORIDE 105 mmol/L (101-111); CHOL/HDL RATIO 3.5 (<5.0); CHOLESTEROL 143 mg/dL; CREATININE 1.2 mg/dL (0.6-1.2); GFR - MDRD 59 (>89); GLUCOSE 179 mg/dL (70-100); HDL CHOLESTEROL 41 mg/dL; LDL CHOLESTEROL,CALCULATED 75 mg/dL; LDL/HDL RATIO 1.8 (<3.6); POTASSIUM 4.6 mmol/L (3.5-5.0); SODIUM 142 mmol/L (135-145); TOTAL PROTEIN 7.6 g/dL (6.7-8.2); TRIGLYCERIDES 134 mg/dL; VLDL CHOLESTEROL 27 mg/dL
[2022-04-17 13:45] LABS: CREATININE,URINE 167.6 mg/dL; MICROALBUM/CREATININE RATIO,UR 38.8 ug/mg (<30.0); MICROALBUMIN,URINE 6.5 mg/dL (0-300.0)
== END 2022-04-17 07:20 | disposition home or self-care (01) ==
LOC: LAB.N 07:19
PROVIDERS: ATTEND Internal Medicine
DX: I10 Essential (primary) hypertension (principal); E11.42 Type 2 diabetes mellitus with diabetic polyneuropathy
CPT/HCPCS: 36415; 80053; 80061; 82043; 82570; 83036; 83721; 85025

== ENCOUNTER 2022-08-08 10:57 | Outpatient (CLI) | payer MEDICARE, OTHER ==
[2022-08-08 18:00] LABS: ALBUMIN/GLOBULIN RATIO 1.1 (1.0-2.2); BILIRUBIN,TOTAL 1.1 mg/dL (0.2-1.0); CALCIUM 9.4 mg/dL (8.5-10.3); CREATININE 1.3 mg/dL (0.6-1.2); POTASSIUM 4.2 mmol/L (3.5-5.0); TOTAL PROTEIN 7.6 g/dL (6.7-8.2)
[2022-08-08 21:10] LABS: ESTIMATED AVERAGE GLUCOSE 160 mg/dL (70-100); HEMOGLOBIN A1c% 7.2 % (4.27-6.07)
== END 2022-08-08 10:58 | disposition home or self-care (01) ==
LOC: LAB.N 10:57
PROVIDERS: ATTEND Internal Medicine
DX: E11.42 Type 2 diabetes mellitus with diabetic polyneuropathy (principal)
CPT/HCPCS: 36415; 80053; 83036

== ENCOUNTER 2022-10-30 13:15 | Outpatient (CLI) | payer MEDICARE, OTHER ==
--- NOTE | 2022-10-30 15:27 | XRAY Report ---
PROCEDURE: Lumbar Spine 2 View INDICATIONS: LOW BACK PAIN CHRONIC TECHNIQUE: 3 views of the lumbar spine were acquired. COMPARISON: 11/20/2020 and 06/08/2020. FINDINGS: Bones: 5 [id number] vertebrae are present. There is 4 mm retrolisthesis of L2 on L3 and L3 on L4. Degenerative endplate changes and bilateral facet arthrosis throughout lumbar spine is seen. No v ertebral body compression fractures. No suspicious bony lesions. Soft tissues: Overlying bowel gas pattern is normal. No suspicious soft tissue calcifications. IMPRESSION: Degenerative disc disease throughout lumbar spine. Grade 1 retrolisthesis at L2-3 and L3 -4 levels. No acute compression fracture. No gross paraspinous soft tissue abnormalities. Reviewed by: Carroll Curtis MD on 10/30/2022 3:26 PM PDT Approved by: Carroll Curtis MD on 10/30/2022 3:26 PM PDT Station ID: [id number]
== END 2022-10-30 13:30 | disposition home or self-care (01) ==
LOC: DI.N 13:15
PROVIDERS: ATTEND Emergency Medicine
DX: M43.16 Spondylolisthesis, lumbar region (principal)

== ENCOUNTER 2022-11-01 10:52 | Outpatient (CLI) | payer MEDICARE, OTHER ==
[2022-11-01 17:55] LABS: BILIRUBIN,URINE NEGATIVE (NEGATIVE); GLUCOSE, URINE (UA) NEGATIVE (NEGATIVE); KETONES,URINE (UA) NEGATIVE (NEGATIVE); LEUKOCYTE ESTERASE, URINE NEGATIVE (NEGATIVE); NITRITE,URINE NEGATIVE (NEGATIVE); OCCULT BLOOD,URINE NEGATIVE (NEGATIVE); PH,URINE 5.5 PH (5.0-7.5); PROTEIN,URINE NEGATIVE (NEGATIVE); UROBILINOGEN,URINE 0.2 (NORMAL) E.U./dL (NORMAL)
[2022-11-01 17:58] LABS: CLARITY,URINE CLOUDY (CLEAR)
[2022-11-01 18:25] LABS: AMORPHOUS SEDIMENT,UR Marked /LPF; BACTERIA,URINE None Seen /HPF (None Seen); RBC,URINE None Seen /HPF (0-5); SQUAMOUS EPITHELIAL CELL,UR NONE SEEN (<= Few); WBC,URINE 0-3 /HPF (0-3)
== END 2022-11-01 10:53 | disposition home or self-care (01) ==
LOC: LAB.N 10:52
PROVIDERS: ATTEND Emergency Medicine
DX: N40.0 Benign prostatic hyperplasia without lower urinary tract symptoms (principal)
CPT/HCPCS: 36415; 81001; 84153; 87086

== ENCOUNTER 2023-07-07 07:54 | Outpatient (CLI) | payer MEDICARE, OTHER ==
[2023-07-07 12:25] LABS: BASOPHILS % (AUTO) 0.7 %; EOSINOPHILS # (AUTO) 0.1 10^3/uL (0.0-0.7); EOSINOPHILS % (AUTO) 2.4 %; HCT - HEMATOCRIT 46.6 % (42.0-52.0); HGB - HEMOGLOBIN 14.6 g/dL (14.0-18.0); LYMPHOCYTES # (AUTO) 1.8 10^3/uL (1.5-3.5); LYMPHOCYTES % (AUTO) 40.5 %; MEAN CORPUSCULAR HEMOGLOBIN 29.9 pg (27.0-31.0); MEAN CORPUSCULAR HGB CONC 31.3 g/dL (32.0-36.0); MEAN CORPUSCULAR VOLUME 95.5 fL (80.0-94.0); MEAN PLATELET VOLUME 10.7 fL (7.4-11.4); MONOCYTES # (AUTO) 0.4 10^3/uL (0.0-1.0); MONOCYTES % (AUTO) 9.1 %; NEUTROPHILS # (AUTO) 2.1 10^3/uL (1.5-6.6); NEUTROPHILS % (AUTO) 46.6 %; PLT - PLATELET COUNT 178 10^3/uL (130-450); RED BLOOD COUNT 4.88 10^6/uL (4.70-6.10); RED CELL DISTRIBUTION WIDTH 14.7 % (12.0-15.0); WHITE BLOOD COUNT 4.5 x10^3/uL (4.8-10.8)
[2023-07-07 12:45] LABS: ALBUMIN 3.9 g/dL (3.2-5.5); ALBUMIN/GLOBULIN RATIO 1.6 (1.0-2.2); ALKALINE PHOSPHATASE 36 IU/L (42-121); ALT ALANINE AMINOTRANSFERASE 16 IU/L (10-60); AST ASPARTATE AMINOTRANSFERASE 15 IU/L (10-42); BILIRUBIN,TOTAL 1.5 mg/dL (0.2-1.0); BUN - BLOOD UREA NITROGEN 18 mg/dL (6-20); CALCIUM 9.7 mg/dL (8.5-10.3); CARBON DIOXIDE - CO2 27 mmol/L (21-32); CHLORIDE 107 mmol/L (101-111); CHOL/HDL RATIO 2.6 (<5.0); CHOLESTEROL 118 mg/dL; CREATININE 1.2 mg/dL (0.6-1.3); GFR - MDRD 59 (>89); GLUCOSE 165 mg/dL (74-104); HDL CHOLESTEROL 46 mg/dL; LDL CHOLESTEROL,CALCULATED 51 mg/dL; LDL/HDL RATIO 1.1 (<3.6); POTASSIUM 4.2 mmol/L (3.5-4.5); SODIUM 141 mmol/L (135-145); TOTAL PROTEIN 6.4 g/dL (6.4-8.9); TRIGLYCERIDES 104 mg/dL (48-352); VLDL CHOLESTEROL 21 mg/dL
[2023-07-07 12:51] LABS: THYROID STIMULATING HORMONE 2.43 uIU/mL (0.34-5.60)
[2023-07-07 13:58] LABS: ESTIMATED AVERAGE GLUCOSE 157 mg/dL (70-100); HEMOGLOBIN A1c% 7.1 % (4.27-6.07)
[2023-07-07 18:26] LABS: CREATININE,URINE 166.8 mg/dL; MICROALBUM/CREATININE RATIO,UR 19.2 ug/mg (<30.0); MICROALBUMIN,URINE 3.2 mg/dL
== END 2023-07-07 07:55 | disposition home or self-care (01) ==
LOC: LAB.N 07:54
PROVIDERS: ATTEND Internal Medicine
DX: E11.42 Type 2 diabetes mellitus with diabetic polyneuropathy (principal); E78.5 Hyperlipidemia, unspecified; K59.03 Drug induced constipation; I10 Essential (primary) hypertension
CPT/HCPCS: 36415; 80053; 80061; 82043; 82570; 83036; 83721; 84443; 85025

== ENCOUNTER 2024-01-13 08:22 | Outpatient (CLI) | payer MEDICARE, OTHER ==
[2024-01-13 18:43] LABS: CALCIUM 9.4 mg/dL (8.5-10.3); CREATININE 1.2 mg/dL (0.6-1.3); POTASSIUM 4.1 mmol/L (3.5-4.5)
[2024-01-13 21:23] LABS: ESTIMATED AVERAGE GLUCOSE 146 mg/dL (70-100); HEMOGLOBIN A1c% 6.7 % (4.27-6.07)
== END 2024-01-13 08:23 | disposition home or self-care (01) ==
LOC: LAB.N 08:22
PROVIDERS: ATTEND Internal Medicine
DX: E11.42 Type 2 diabetes mellitus with diabetic polyneuropathy (principal); N40.1 Benign prostatic hyperplasia with lower urinary tract symptoms
CPT/HCPCS: 36415; 80048; 83036; 84153